=== PATIENT | male | born 1995 | race Two or more races ===

== ENCOUNTER 2020-12-24 01:31 | Emergency (ER) | payer MEDICAID ==
[~2020-12-24] VITALS: Ht 165.1 cm; Wt 82.0 kg
[2020-12-24 01:32] VITALS: BP 118/76
== END 2020-12-24 02:30 | disposition left against medical advice (07) ==
LOC: ER 01:31
DX: Z53.21 Procedure and treatment not carried out due to patient leaving prior to being seen by health care provider (principal)

== ENCOUNTER 2020-12-30 12:42 | Emergency (ER) | payer MEDICAID ==
[~2020-12-30] VITALS: Ht 175.3 cm; Wt 82.0 kg
[2020-12-30] MEDS ORDERED: LEVETIRACETAM 500MG PREMIX 100 ML IV ONE (14:45)
[2020-12-30 15:00] VITALS: BP 145/77
[2020-12-30] MEDS ORDERED: ONDANSETRON HCL 4MG/2ML INJ IV ONE (15:30)
[2020-12-30 15:38] LABS: HEMATOCRIT. 43.2 % (42.0-52.0); MEAN CORPUSCULAR VOLUME 80.8 fL (80.0-94.0); MEAN PLATELET VOLUME 8.6 fl (7.4-10.4); PLATELET 249 x1000/uL (130-400); RED BLOOD CELL COUNT 5.35 mill/uL (4.7-6.1); RED CELL DISTRIBUTION WIDTH 13.9 % (11.6-14.6)
[2020-12-30 15:41] LABS: CHLORIDE 96 mEq/L (98-107)
[2020-12-30 16:43] LABS: PLATELET ESTIMATE NORMAL
[2020-12-30] MEDS ORDERED: ONDANSETRON HCL 4MG/2ML INJ IV PRN (19:45)
[2020-12-30] MEDS ORDERED: ACETAMINOPHEN 325MG TABLET PO PRN (19:45)
[2020-12-30] MEDS ORDERED: ACETAMINOPHEN 650MG SUPP PR PRN ×2 (19:45)
[2020-12-30] MEDS ORDERED: ENOXAPARIN 40MG/0.4ML SYR SUBCUT SCH (19:45)
[2020-12-30] MEDS ORDERED: MAGNESIUM/ALUMINUM HYDROXIDE/SIMETHICONE 30ML UDC PO PRN (19:45)
[2020-12-30] MEDS ORDERED: LEVETIRACETAM 500 MG in SODIUM CHLORIDE 0.9% 100 ML IV SCH (19:45)
[2020-12-30] MEDS ORDERED: DEXTROSE 50% WATER 50ML SYRINGE IV PRN (19:45)
[2020-12-30] MEDS ORDERED: CLONIDINE 0.1MG TABLET PO PRN (19:45)
[2020-12-30] MEDS ORDERED: ACETAMINOPHEN 650MG/20.3ML UDC GT PRN ×2 (19:45)
[2020-12-30] MEDS ORDERED: SODIUM CHLORIDE 0.9% 1,000 ML IV SCH (20:00)
[2020-12-30] MEDS ORDERED: BLOOD SUGAR DIAGNOSTIC STRIP TEST SCH (21:00)
[2020-12-30] MEDS ORDERED: INSULIN LISPRO 100 UNITS/ML SUBCUT SCH (21:00)
== END 2020-12-30 16:00 | disposition left against medical advice (07) ==
LOC: ER 12:42 → CANBEDREQ 19:57
DX: G40.909 Epilepsy, unspecified, not intractable, without status epilepticus (principal); R11.2 Nausea with vomiting, unspecified; E86.0 Dehydration; Z91.14 Patient's other noncompliance with medication regimen
CPT/HCPCS: 36415; 80053; 83036; 85025; 96365; 99284; J1953; J2405; Z7610

== ENCOUNTER 2021-01-12 04:21 | Emergency (ER) | payer MEDICAID ==
[~2021-01-12] VITALS: Ht 170.2 cm; Wt 83.0 kg
[2021-01-12] MEDS ORDERED: ACETAMINOPHEN 325MG TABLET PO STA (04:37)
[2021-01-12 04:54] LABS: BASOPHILS % 0.5 % (0.0-2.0); EOSINOPHILS % 0.4 % (0.0-5.0); HEMATOCRIT. 34.6 % (42.0-52.0); HEMOGLOBIN. 11.2 g/dL (14.0-18.0); LYMPHOCYTES % 11.4 % (20.0-50.0); MEAN CORPUSCULAR HEMOGLOBIN 26.9 pg (28.0-32.0); MEAN CORPUSCULAR VOLUME 82.7 fL (80.0-94.0); MEAN PLATELET VOLUME 6.9 fl (7.4-10.4); MONOCYTES % 8.6 % (2.0-8.0); NEUTROPHILS % 79.1 % (40.0-76.0); PLATELET 208 x1000/uL (130-400); RED BLOOD CELL COUNT 4.19 mill/uL (4.7-6.1); RED CELL DISTRIBUTION WIDTH 15.8 % (11.6-14.6)
[2021-01-12] MEDS ORDERED: DIVALPROEX SODIUM 500MG DR TABLET PO ONE (05:00)
[2021-01-12 05:01] LABS: CHLORIDE 109 mEq/L (98-107)
[2021-01-12] MEDS ORDERED: POTASSIUM CHLORIDE 20MEQ TABLET SR PO ONE (05:15)
[2021-01-12] MEDS ORDERED: MAGNESIUM OXIDE 400MG TABLET PO SCH (05:15)
[2021-01-12] MEDS ORDERED: DIVA500T3 MT (05:23)
[2021-01-12] MEDS ORDERED: TOPUD PO (05:23)
[2021-01-12] MEDS ORDERED: ONDANSETRON HCL 4MG/2ML INJ IV ONE (05:45)
[2021-01-12 06:47] VITALS: BP 129/81
== END 2021-01-12 06:47 | disposition home or self-care (01) ==
LOC: ER 04:21
DX: G40.909 Epilepsy, unspecified, not intractable, without status epilepticus (principal); E87.6 Hypokalemia; E11.9 Type 2 diabetes mellitus without complications; Z86.73 Personal history of transient ischemic attack (TIA), and cerebral infarction without residual deficits; Z91.14 Patient's other noncompliance with medication regimen
CPT/HCPCS: 36415; 80053; 85025; 96374; 99284; J2405